=== PATIENT | male | born 1995 | race African-American/Black ===

== ENCOUNTER 2020-05-24 05:59 | Emergency (ER) | payer OTHER, BC ==
[~2020-05-24] VITALS: Ht 188 cm; Wt 79.4 kg
[2020-05-24 06:58] VITALS: BP 141/90
== END 2020-05-24 06:58 | disposition home or self-care (01) ==
LOC: M.ERS 05:59
DX: S61.210A Laceration without foreign body of right index finger without damage to nail, initial encounter (principal); V89.2XXA Person injured in unspecified motor-vehicle accident, traffic, initial encounter; Y93.89 Activity, other specified; Y92.89 Other specified places as the place of occurrence of the external cause; Y99.8 Other external cause status